=== PATIENT | female | born 1960 | race Caucasian/White ===

== ENCOUNTER 2022-07-27 08:00 | Outpatient (RCR) | payer OTHER, SELFPAY | END 2022-08-29 08:23 | disposition home or self-care (01) | LOC: HO.PTCHIC 08:00 | PROVIDERS: PCP Internal Medicine; Visit Provider Oral & Maxillofacial Surgery | DX: S02.609A Fracture of mandible, unspecified, initial encounter for closed fracture (principal) | CPT/HCPCS: 97110; 97140; 97161 ==

== ENCOUNTER 2024-03-10 08:06 | Day surgery (SDC) | payer OTHER, SELFPAY ==
--- NOTE | 2024-03-09 11:01 | P.CONAN_ITS ---
Documented by User: Nydia Saez NP 03/09/24 11:01 HPI - Anesthesia Eval Consult details Narrative: 64yo F for Colonoscopy PMFSH Past Medical History Medical History Diverticulosis RICARDO (obstructive sleep apnea) Insomnia H/O esophageal spasm GERD (gastroesophageal reflux disease) Vertigo Cardiac abnormality HTN (hypertension) Surgical History Surgical History History of surgery H/O arthroscopy of left knee History of surgery History of appendectomy Social History Social History Are you a primary clinical manager home care to a significant other at home: No Patient Tobacco Use Status: Never used Tobacco Use of substances other than those prescribed or required for medical reasons: Yes Substance Use Frequency: Occasionally Have you been hit, kicked, punched, or otherwise hurt by someone within the past year? If so, by whom?: No Are you DNR?: No Advance Directives: No Advance Directives Information Provided: Yes Recently lost weight without trying: No Nutrition Risks: No Nutritional Risk Meds Allergies Allergy/AdvReac Type Severity Reaction Status Date / Time amoxicillin [From AUGMENTIN] AdvReac Mild N/V Unverified 03/03/20 15:22 clavulanic acid AdvReac Mild N/V Unverified 03/03/20 15:22 [From AUGMENTIN] Augmentin Allergy Unknown Nausea and Uncoded 03/08/24 13:49 Vomiting Home Medications ?Medication ?Instructions ?Recorded ?Confirmed ?Last Taken ?Type esomeprazole magnesium 20 mg 20 mg PO DAILY 03/08/24 Unknown History capsule,delayed release lorazepam 0.5 mg tablet 0.5 mg PO Q OTHER DAY PRN anxiety 03/08/24 Unknown History losartan 25 mg tablet 25 mg PO DAILY 03/08/24 Unknown History zolpidem 10 mg tablet 10 mg PO BEDTIME PRN Insomnia 03/08/24 Unknown History Assessment and Plan Assessment Anesthesia Assessment: Chart Reviewed Documented by User: Jermaine Gant MD 03/10/24 09:58 [facility] Past Medical History Medical History Diverticulosis RICARDO (obstructive sleep apnea) Insomnia H/O esophageal spasm GERD (gastroesophageal reflux disease) Vertigo Cardiac abnormality HTN (hypertension) Family History Family history of problems with anesthesia: No Surgical History Surgical History History of surgery H/O arthroscopy of left knee History of surgery History of appendectomy History of Problems with Anesthesia: No Social History Social History Are you a primary clinical manager home care to a significant other at home: No Patient Tobacco Use Status: Never used Tobacco Use of substances other than those prescribed or required for medical reasons: Yes Substance Use Frequency: Occasionally Have you been hit, kicked, punched, or otherwise hurt by someone within the past year? If so, by whom?: No Are you DNR?: No Advance Directives: No Advance Directives Information Provided: Yes Recently lost weight without trying: No Nutrition Risks: No Nutritional Risk Meds Allergies Allergy/AdvReac Type Severity Reaction Status Date / Time amoxicillin [From AUGMENTIN] AdvReac Mild N/V Unverified 03/03/20 15:22 clavulanic acid AdvReac Mild N/V Unverified 03/03/20 15:22 [From AUGMENTIN] Augmentin Allergy Unknown Nausea and Uncoded 03/08/24 13:49 Vomiting Home Medications ?Medication ?Instructions ?Recorded ?Confirmed ?Last Taken ?Type esomeprazole magnesium 20 mg 20 mg PO DAILY 03/08/24 Unknown History capsule,delayed release lorazepam 0.5 mg tablet 0.5 mg PO Q OTHER DAY PRN anxiety 03/08/24 Unknown History losartan 25 mg tablet 25 mg PO DAILY 03/08/24 Unknown History zolpidem 10 mg tablet 10 mg PO BEDTIME PRN Insomnia 03/08/24 Unknown History Exam Airway Mallampati Class: II TM Dist: <=3cm Neck ROM: Full Partial: Upper Heart: ok Lungs: ok Assessment and Plan Assessment Anesthesia Assessment: Anesthesia Plan Discussed Final Anesthetic Review Family History of Problems with Anesthesia: No History of Problems with Anesthesia: No NPO: Yes ASA Class: III Final Preanesthetic Review: No Changes in Pt Med Stat, Meds/Allgs Chart Reviewed, Consent Obtained/Reviewed and Anes Risks/Benef Reviewed Patient Risk: Intermediate Procedure Risk: Low Anesthetic Plan Anesthetic Plan: MAC: and Agree w/ Assess. and Plan Disposition: Standard PACU
[2024-03-10 08:33] VITALS: BMI 29.5
[2024-03-10 08:59] VITALS: BP 121/83; PULSE 75; RESP 18; TEMP 36.8; O2SAT 99
[2024-03-10] MEDS: Lactated Ringers 1,000 ML 100 ML IVCONT (09:01)
--- NOTE | 2024-03-10 09:32 | P.HPSUR_ITS ---
Pre-Procedural Eval Section A - 24 Hr Update-Section A only Date of Service: 03/10/24 Section B - Complete if H&P > 30 days Chief Complaint: screening Details of Present Illness: see H&P no changes Relevant Family History (Specify if Yes): No Relevant Social History: None Present Medications: see Short Stay Collaborative assessment Medical History: No relevant PMH History of Previous Operations: No relevant previous surgery Allergies: Allergies Allergy/AdvReac Type Severity Reaction Status Date / Time amoxicillin [From AUGMENTIN] AdvReac Mild N/V Unverified 03/03/20 15:22 clavulanic acid AdvReac Mild N/V Unverified 03/03/20 15:22 [From AUGMENTIN] Augmentin Allergy Unknown Nausea and Uncoded 03/08/24 13:49 Vomiting Review of Systems Sugical H&P ROS: Negative: Constitution, Cardiovascular, Respiratory, Neurologi marielle, Psychiatric, Hem-Onc, Allergic/Immunologic, Gastrointestinal, Genitourinary, Musculoskeletal, Integumentary, Endocrine and Eyes/Ears/Nose/Throat Exam Surgical H&P Exam: Normal: HEENT, Normal: Heart, Normal: Lungs, Normal: Extremities, Normal: Abdomen, Normal: Skin and Normal: Neurological Plan Diagnosis/Plan: Unchanged I have reviewed the history and physical and performed a pertinent physical examination on my patient. No changes have occurred unless specified. Time Spent With Patient Time: Total time managing care of this patient today ____ minutes.
[2024-03-10 10:06] VITALS: BP 113/67; PULSE 70; RESP 18; TEMP 36.5; O2SAT 96
[2024-03-10 10:21] VITALS: BP 131/86; PULSE 67; RESP 18; TEMP 36.7; O2SAT 98
--- NOTE | 2024-03-10 10:40 | OP_ITS ---
DATE OF SERVICE: 03/10/2024 SURGEON: Héctor Tubbs MD INDICATIONS: Colon cancer screening. PREOPERATIVE DIAGNOSIS: POSTOPERATIVE DIAGNOSIS: PROCEDURE PERFORMED: Colonoscopy to the terminal ileum. ESTIMATED BLOOD LOSS: COMPLICATIONS: ANESTHESIA: Monitored anesthesia care. ASSISTANTS: SPECIMENS: DESCRIPTION OF PROCEDURE: A history and physical was performed. The risks and benefits of the procedure were explained to the patient and informed consent was obtained. The patient was placed in the left lateral decubitus position. A digital rectal exam was performed and was found to be normal. The Olympus pediatric video colonoscope was introduced into the rectum and advanced to the cecum. The cecum was identified by transillumination, palpation, and identification of ileocecal valve. Examination was performed and the scope was removed. She tolerated the procedure well and was returned to recovery area in stable condition. FINDINGS: The terminal ileum was examined and appeared normal. The visualized colonic mucosa was within normal limits without evidence of masses or ulcers. No polyps were identified. The quality of the prep was good. There was scattered diverticulosis throughout the colon. Retroflexed examination showed small internal hemorrhoids. IMPRESSION: Normal colonoscopy. RECOMMENDATIONS: 1. Follow up as needed. 2. Repeat colonoscopy is recommended in 10 years for average-risk individuals. MD GINNA Haines/SHADEL / [phone]
== END 2024-03-10 10:53 | disposition home or self-care (01) ==
PROVIDERS: PCP Internal Medicine; Visit Provider Internal Medicine Gastroenterology
PROC: 0DJD8ZZ Inspection of Lower Intestinal Tract, Via Natural or Artificial Opening Endoscopic (ICD-10-PCS; CPT 45378; principal; 2024-03-10 10:00)
DX: Z12.11 Encounter for screening for malignant neoplasm of colon (principal); K57.30 Diverticulosis of large intestine without perforation or abscess without bleeding; K64.8 Other hemorrhoids; I10 Essential (primary) hypertension; K21.9 Gastro-esophageal reflux disease without esophagitis; G47.33 Obstructive sleep apnea (adult) (pediatric); Z99.89 Dependence on other enabling machines and devices; Z79.899 Other long term (current) drug therapy
CPT/HCPCS: 45378; J2704